=== PATIENT | male | born 1950 ===

== ENCOUNTER 2025-07-17 23:04 | Emergency (ER) | payer OTHER, SELFPAY ==
[2025-07-17 23:15] VITALS: BMI 22.4
[2025-07-17 23:20] VITALS: BP 115/65
[2025-07-17 23:34] LABS: Hematocrit 45.3 % (39.0-52.0); Hemoglobin 14.8 g/dL (13.0-18.0); Mean Corp Hgb Conc. 32.7 g/dL (33.0-37.0); Mean Corpuscular Volume 86.3 fL (80.0-94.0); Nucleated Red Blood Cells % 0 % (-); Platelet Count 217 10^3/uL (130-400); Red Cell Dist. Width 13.3 % (11.5-14.5)
--- NOTE | 2025-07-17 23:52 | ED.GENMED ---
History of Present Illness
General
Chief Complaint: Fatigue
Source: patient and family
Exam Limitations: none
Time Seen by Provider: 07/17/25 23:30
Nursing documentation reviewed up to this point in time: agreed with
History of Present Illness
History of Present Illness:
74-year-old male with history of HTN, HLD, NIDDM, CKD, had 4 front bottom teeth extracted under general anesthesia earlier today. Came home and had some soup with noodles, yogurt, took Tylenol 1000 mg at 6 PM. At 9:30 PM he went to the bathroom
and sat on the toilet saying he had to vomit, his was with him and states he did not vomit but he became unresponsive and leaned to the side his having to hold him up and he was not responding to her. As she was shaking him and calling
his name he did come to and he vomited. By that time his son arrived and he was able to walk to the bed with assistance.
Pt now recalls the incident stating 'I had to vomit then I passed out.' Pt denies any significant pain, has mild stomach discomfort. Denies CP,SOP. Denies diarrhea/constipation
Past History
Past History
ED Past Medical History: HTN, Hypercholesterolemia, NIDDM and Other (CKD)
Social History
Tobacco: Non-smoker
Personal:
Living: with family
Review of Systems
Review of Systems
Allergies reviewed?: Yes
All Other Systems: ROS reviewed and negative except as documented in HPI and ROS
Constitutional: Reports fatigue; Denies fever
EENT: Denies mouth swelling
Respiratory: Denies trouble breathing
Cardiac: Reports syncope; Denies chest pain, diaphoresis or palpitations
ABD/GI: Reports nausea and vomiting; Denies abdominal pain or diarrhea
: Denies dysuria or difficulty voiding
Musculoskeletal: Reports no symptoms
Skin: Reports no symptoms
Neurological: Reports no symptoms
Phy Exam
Physical Exam
Physical Exam:
GENERAL: No acute distress. A&Ox3.
CONSTITUTIONAL: Afebrile.
EYES: clear, conjunctivae normal
ENMT: moist mucus membranes, Pharynx nl
RESPIRATORY: Regular respirations, nonlabored, lungs clear.
CARDIOVASCULAR: Regular rate and rhythm, no murmurs, no rubs.
GI: Soft, nontender, normal BS
MUSCULOSKELETAL: Moves with ease. Well perfused. No edema
SKIN: Warm, dry, normal
PSYCH: Somnolent mood and affect. Well kept, interactive and appropriate
NEUROLOGIC: Awake, alert and oriented. No focal neurological deficits
Course
Orders/Labs/Results
Orders:
Orders
07/17/25 23:19
IV Insert/Care/Rem.- Treatment PRN
07/17/25 23:21
Complete Blood Count/With Diff Urgent
Comprehensive Metabolic Panel Urgent
07/18/25 00:03
Electrocardiogram (*1) Urgent
Reason for Study: Syncope
EKG- Treatment ONCE
07/18/25 00:15
0.9% Sodium Chloride 1000 ml [Nss] 1,000 ml IV BOLUS
07/18/25 01:12
Complete Blood Count/With Diff Urgent
Abnormal Lab Results
07/17/25 07/18/25
23:21 01:12
WBC 18.8 H 10^3/uL 15.3 H 10^3/uL
(4.8-10.8) (4.8-10.8)
MCHC 32.7 L g/dL 32.3 L g/dL
(33.0-37.0) (33.0-37.0)
MPV 11.0 H fL 10.7 H fL
(7.4-10.4) (7.4-10.4)
Abs Immat Gran (auto) 0.1 H 10^3/uL 0.1 H 10^3/uL
(0-0.05) (0-0.05)
Absolute Neuts (auto) 14.3 H 10^3/uL 13.1 H 10^3/uL
(1.4-6.5) (1.4-6.5)
Absolute Lymphs (auto) 1.0 L 10^3/uL
(1.2-3.4)
Absolute Monos (auto) 0.9 H 10^3/uL 1.0 H 10^3/uL
(0.1-0.6) (0.1-0.6)
Neutrophils % 76.0 H % 85.4 H %
(42.2-75.2) (42.2-75.2)
Lymphocytes % 15.6 L % 6.5 L %
(20.5-51.1) (20.5-51.1)
Sodium 134 L mmol/L
(135-145)
BUN 25 H mg/dl
(9-20)
Glucose 148 H mg/dl
(70-99)
07/18/25 01:12
07/17/25 23:21
Vital Signs
Initial and Last Documented VS:
Initial Vital Signs
Temp Pulse Resp Pulse Ox
97.4 F 86 16 96
07/17/25 23:06 07/17/25 23:06 07/17/25 23:06 07/17/25 23:06
Last Documented Vital Signs
Temp Pulse Resp BP Pulse Ox
97.4 F 75 14 110/60 96
07/17/25 23:06 07/18/25 00:45 07/18/25 00:45 07/18/25 00:00 07/18/25 00:45
MDM/Problems Addressed
Differential Diagnosis Includes:
Dehydration, vasovagal reaction
MDM/Problems Addressed:
74-year-old male with history of HTN, HLD, NIDDM, CKD, had 4 front bottom teeth extracted under general anesthesia earlier today. Came home and had some soup with noodles, yogurt, took Tylenol 1000 mg at 6 PM. At 9:30 PM he went to the bathroom
and sat on the toilet saying he had to vomit, his was with him and states he did not vomit but he became unresponsive and leaned to the side his having to hold him up and he was not responding to her. As she was shaking him and calling
his name he did come to and he vomited. By that time his son arrived and he was able to walk to the bed with assistance.
Pt now recalls the incident stating 'I had to vomit then I passed out.' Pt denies any significant pain, has mild stomach discomfort. Denies CP,SOP. Denies diarrhea/constipation
CBC: WBC 18.8 with a shift
CMP: BUN 25, IV fluids running for mild dehydration. Otherwise no clinically significant abnormality.
EKG NSR
1:30 PM a.m.
After resting, IVF's CBC repeated: WBC trending down, now 15.3 (most likely stress reaction)
Pt still drowsy, awakened, drinking aldo chastity, amblated to BR and back steadily.
Stable for DC to care of family
*Pulse Oximetry
SaO2: 100
Oxygen Mode of Delivery: Room air
Patient hypoxic: no
*EKG
EKG Intrepretation Date: 07/18/25
Interpretation: normal
Heart Rate: 80
Rate: normal
Rhythm: sinus
[place]: normal axis
Interval: normal interval
QRS Pattern: normal QRS
Ischemia: no ischemia
*Critical Care Note
Total Time (30-74mins, 75-104mins- exclusive of procedures): Not Applicable
ED Attending Note
-
Portions of this chart may have been created with voice recognition software.� Occasional wrong word or��sound alike� substitutions may have occurred due to the inherent limitations of voice recognition software.
Discharge Plan
Departure
Patient Disposition: Home (Routine Discharge)
Date of Disposition: 07/18/25
Time of Disposition: 01:35
Patient with high blood pressure during this ER visit?: No
Condition: Good
Discharge Problem:
Vasovagal episode, Mild dehydration
Instructions: Syncope (fainting) (DC), Dehydration in adults - ED (DC)
Referrals:
Dmitriy Weiss MD [Family Provider] - As needed
Activity Restrictions/Additional Instructions:
As we discussed, your workup here today shows mild dehydration
You most likely had a 'vaso vagal episode' from feeling nauseous and vomiting.
Your EKG is normal
Drink plenty of fluids.
See your doctor in 2-3 days if not feeling much better by then
Retur here immediately for continuing to feel faint, unable to keep any food or liquid down or feeling sicker in any way.
Interventions
Interventions:
*Risk Screen - Suicide Last Done: 07/17/25 23:11
*General Assessment Last Done: 07/17/25 23:11
*Neglect/Abuse Screening Last Done: 07/17/25 23:11
*ED- Fall Risk Assessment Last Done: 07/17/25 23:11
*ED COVID-19 Vaccine History Last Done: 07/17/25 23:11
*ED Influenza Vaccine History Last Done: 07/17/25 23:11
*Nursing Disposition Last Done: 07/18/25 01:39
Discharge Date and Time
Discharge Date/Time: 07/18/25 01:50
Print Language: RWANDAN
[2025-07-18] VITALS: BP 110/60
[2025-07-18 00:01] LABS: ALT (SGPT) 18 U/L (0-50); AST (SGOT) 23 U/L (17-59); Albumin 4.2 g/dl (3.5-5.0); Alkaline Phosphatase 52 U/L (38-126); Blood Urea Nitrogen 25 mg/dl (9-20); Calcium 9.2 mg/dl (8.4-10.2); Carbon Dioxide 25 mmol/L (22-30); Chloride 103 mmol/L (98-107); Estimated Creatinine Clearance 53 ml/min; Glucose 148 mg/dl (70-99); Potassium 3.9 mmol/L (3.5-5.1); Sodium 134 mmol/L (135-145); Total Protein 7.2 g/dl (6.3-8.2); eGFR > 60.00
[2025-07-18] MEDS: NSS 1000 IV (00:27)
[2025-07-18 01:27] LABS: Hematocrit 43.4 % (39.0-52.0); Hemoglobin 14.0 g/dL (13.0-18.0); Mean Corp Hgb Conc. 32.3 g/dL (33.0-37.0); Mean Corpuscular Volume 87.7 fL (80.0-94.0); Nucleated Red Blood Cells % 0 % (-); Platelet Count 205 10^3/uL (130-400); Red Cell Dist. Width 13.2 % (11.5-14.5)
== END 2025-07-18 01:50 | disposition home or self-care (01) ==
LOC: EMR 23:04
PROVIDERS: Emergency Medicine; Registered Nurse; EMERGENCY PHYSICIAN Emergency Medicine; FAMILY PHYSICIAN Family Medicine
DX: R55 Syncope and collapse (principal); E86.0 Dehydration; I12.9 Hypertensive chronic kidney disease with stage 1 through stage 4 chronic kidney disease, or unspecified chronic kidney disease; N18.9 Chronic kidney disease, unspecified; E11.22 Type 2 diabetes mellitus with diabetic chronic kidney disease; E78.00 Pure hypercholesterolemia, unspecified
CPT/HCPCS: 99283; 96360; 80053; 85025; 93005